=== PATIENT | female | born 1940 | race Caucasian/White ===

== ENCOUNTER 2016-08-29 14:03 | Outpatient (CLI) | payer MEDICARE, OTHER ==
[2016-08-29 14:51] LABS: eGFR (African) > 60; eGFR (Non-African) 39
== END 2016-08-29 14:04 ==
LOC: CARD 14:03
PROVIDERS: ATTEND Family Medicine
DX: I50.9 Heart failure, unspecified (principal)
CPT/HCPCS: 36415; 80048; G0463

== ENCOUNTER 2016-12-22 09:20 | Outpatient (CLI) | payer MEDICARE, OTHER ==
[2016-12-22 09:35] LABS: MEAN CORPUSCULAR HEMOGLOBIN 29.7 pg (28.0-34.0); MEAN CORPUSCULAR VOLUME 90.1 fl (80.0-100.0)
[2016-12-22 10:27] LABS: eGFR (African) > 60; eGFR (Non-African) 42
== END 2016-12-22 09:21 ==
LOC: LAB 09:20
PROVIDERS: ATTEND Internal Medicine Cardiovascular Disease
DX: E11.9 Type 2 diabetes mellitus without complications (principal); I25.10 Atherosclerotic heart disease of native coronary artery without angina pectoris; R06.02 Shortness of breath; E78.5 Hyperlipidemia, unspecified
CPT/HCPCS: 36415; 80053; 80061; 85027

== ENCOUNTER 2017-01-09 14:03 | Outpatient (CLI) | payer MEDICARE, OTHER | END 2017-01-09 14:04 | LOC: LAB 14:03 | PROVIDERS: ATTEND Family Medicine | DX: E11.9 Type 2 diabetes mellitus without complications (principal) | CPT/HCPCS: 36415; 83036 ==

== ENCOUNTER 2017-04-19 10:09 | Outpatient (CLI) | payer MEDICARE, OTHER | END 2017-04-19 10:10 | LOC: LAB 10:09 | PROVIDERS: ATTEND Family Medicine | DX: E11.9 Type 2 diabetes mellitus without complications (principal) | CPT/HCPCS: 36415; 83036 ==

== ENCOUNTER 2017-07-24 08:48 | Outpatient (CLI) | payer MEDICARE, OTHER | END 2017-07-24 08:50 | LOC: LAB 08:48 | PROVIDERS: ATTEND Family Medicine | DX: E11.9 Type 2 diabetes mellitus without complications (principal) | CPT/HCPCS: 36415; 80061; 83036 ==

== ENCOUNTER 2017-11-12 14:37 | Outpatient (CLI) | payer MEDICARE, OTHER | END 2017-11-12 14:40 | LOC: LAB 14:37 | PROVIDERS: ATTEND Family Medicine | DX: E11.9 Type 2 diabetes mellitus without complications (principal) | CPT/HCPCS: 36415; 83036 ==

== ENCOUNTER 2018-01-15 10:54 | Outpatient (CLI) | payer MEDICARE, OTHER | END 2018-01-15 10:55 | LOC: LAB 10:54 | PROVIDERS: ATTEND Family Medicine | DX: M10.9 Gout, unspecified (principal) | CPT/HCPCS: 36415; 84550 ==

== ENCOUNTER → 2018-03-28 | Outpatient (CLI) | payer MEDICARE, OTHER | LOC: LAB 11:58 | PROVIDERS: ATTEND Internal Medicine Cardiovascular Disease | DX: I25.10 Atherosclerotic heart disease of native coronary artery without angina pectoris (principal) | CPT/HCPCS: 36415; 80048 ==

== ENCOUNTER 2018-04-10 09:34 | Outpatient (CLI) | payer MEDICARE, OTHER ==
[2018-04-10 10:23] LABS: eGFR (African) > 60; eGFR (Non-African) 42
== END 2018-04-10 09:35 ==
LOC: LAB 09:34
PROVIDERS: ATTEND Internal Medicine Cardiovascular Disease
DX: I25.10 Atherosclerotic heart disease of native coronary artery without angina pectoris (principal)
CPT/HCPCS: 36415; 80048; 84550

== ENCOUNTER 2018-04-23 10:13 | Outpatient (CLI) | payer MEDICARE, OTHER | END 2018-04-23 10:14 | LOC: LAB 10:13 | PROVIDERS: ATTEND Family Medicine | DX: E11.9 Type 2 diabetes mellitus without complications (principal) | CPT/HCPCS: 36415; 83036 ==

== ENCOUNTER 2018-07-22 10:58 | Outpatient (CLI) | payer MEDICARE, OTHER ==
[2018-07-22 11:52] LABS: eGFR (Non-African) 36
== END 2018-07-22 11:00 ==
LOC: LAB 10:58
PROVIDERS: ATTEND Family Medicine
DX: E11.9 Type 2 diabetes mellitus without complications (principal)
CPT/HCPCS: 36415; 80053; 80061; 83036

== ENCOUNTER 2018-11-19 15:29 | Outpatient (CLI) | payer MEDICARE, OTHER | END 2018-11-19 15:32 | LOC: NEPHRO 15:29 | PROVIDERS: ATTEND Internal Medicine Nephrology | DX: E11.22 Type 2 diabetes mellitus with diabetic chronic kidney disease (principal); N18.3 Chronic kidney disease, stage 3 (moderate); Z79.4 Long term (current) use of insulin; I50.9 Heart failure, unspecified | CPT/HCPCS: G0463 ==

== ENCOUNTER 2018-11-27 07:40 | Outpatient (CLI) | payer MEDICARE, OTHER ==
--- NOTE | 2018-11-27 12:43 | Diagnostic Imaging Report ---
<p>Your browser does not support iframes.</p> FLASH ROSARIO [facility] [id number] [facility]. [address] [place] [address]. [id number] Report Submission Date: Nov 27, 2018 8:20:50 AM CDT Patient Study Name: CANDELARIA MALHOTRA Date: Nov 27, 2018 7:55:15 AM CDT Modality Type: US Gender: F Description: US RETROPERITONEAL COMPLETE : 42 Institution: [facility] Physician: FLASH ROSARIO Examination: Ultrasound kidneys History: CKD CHF DM NEPHROPATHY Comparison exams: None provided. Findings: Right kidney measures 9.1 cm in length. Left kidney measures 9.8 cm in length. No evidence for cortical mass bilaterally. No abnormal dilation of the intrarenal collecting systems. Impression: No cortical mass or obstruction. Electronically signed on Nov 27, 2018 8:20:50 AM CDT by: Urbano PERAE
== END 2018-11-27 10:44 ==
LOC: RAD 07:40
PROVIDERS: ATTEND Internal Medicine Nephrology
DX: E11.21 Type 2 diabetes mellitus with diabetic nephropathy (principal); I50.9 Heart failure, unspecified; N18.9 Chronic kidney disease, unspecified
CPT/HCPCS: 76770

== ENCOUNTER 2018-12-16 10:29 | Outpatient (CLI) | payer MEDICARE, OTHER | END 2018-12-16 10:33 | LOC: LAB 10:29 | PROVIDERS: ATTEND Family Medicine | DX: E11.9 Type 2 diabetes mellitus without complications (principal) | CPT/HCPCS: 36415; 83036 ==

== ENCOUNTER 2019-01-07 14:30 | Outpatient (CLI) | payer MEDICARE, OTHER | END 2019-01-07 14:33 | LOC: NEPHRO 14:30 | PROVIDERS: ATTEND Internal Medicine Nephrology | DX: E11.22 Type 2 diabetes mellitus with diabetic chronic kidney disease (principal); N18.3 Chronic kidney disease, stage 3 (moderate); I50.9 Heart failure, unspecified; Z79.84 Long term (current) use of oral hypoglycemic drugs | CPT/HCPCS: G0463 ==

== ENCOUNTER 2019-04-01 09:16 | Outpatient (CLI) | payer MEDICARE, OTHER ==
[2019-04-01 09:44] LABS: BASOPHILS % 0.4 % (0.0-1.5); NEUTROPHILS # 4.8 # k/uL (1.4-7.7)
[2019-04-01 09:55] LABS: APPEARANCE,URINE CLEAR (CLEAR); COLOR,URINE YELLOW (YELLOW); OCCULT BLOOD,URINE TRACE-INTACT (NEGATIVE); PH URINE 5.5 (5.0 - 8.0); UROBILINOGEN URINE 0.2 Eu (0.2-1.0)
[2019-04-01 09:59] LABS: A1C 6.7 % (<5.7)
[2019-04-01 10:02] LABS: eGFR (Non-African) 32
== END 2019-04-01 09:18 ==
LOC: LAB 09:16
PROVIDERS: ATTEND Internal Medicine Nephrology
DX: E11.22 Type 2 diabetes mellitus with diabetic chronic kidney disease (principal); I50.9 Heart failure, unspecified
CPT/HCPCS: 36415; 80053; 81002; 83036; 85025

== ENCOUNTER 2019-04-08 14:16 | Outpatient (CLI) | payer MEDICARE, OTHER | END 2019-04-08 14:45 | LOC: NEPHRO 14:16 | PROVIDERS: ATTEND Internal Medicine Nephrology | DX: E11.22 Type 2 diabetes mellitus with diabetic chronic kidney disease (principal); N18.3 Chronic kidney disease, stage 3 (moderate); I50.9 Heart failure, unspecified; Z79.84 Long term (current) use of oral hypoglycemic drugs; Z98.61 Coronary angioplasty status | CPT/HCPCS: 99214; G0463 ==

== ENCOUNTER 2019-07-08 09:31 | Outpatient (CLI) | payer MEDICARE, OTHER ==
[2019-07-08 10:31] LABS: BASOPHILS % 0.6 % (0.0-1.5); NEUTROPHILS # 5.8 # k/uL (1.4-7.7)
[2019-07-08 11:02] LABS: APPEARANCE,URINE CLEAR (CLEAR); COLOR,URINE YELLOW (YELLOW); OCCULT BLOOD,URINE NEGATIVE (NEGATIVE); UROBILINOGEN URINE 0.2 Eu (0.2-1.0)
[2019-07-08 11:03] LABS: eGFR (Non-African) 30
[2019-07-08 11:27] LABS: A1C 6.2 % (<5.7)
== END 2019-07-08 09:40 ==
LOC: LAB 09:31
PROVIDERS: ATTEND Internal Medicine Nephrology
DX: E11.22 Type 2 diabetes mellitus with diabetic chronic kidney disease (principal); N18.3 Chronic kidney disease, stage 3 (moderate); N17.9 Acute kidney failure, unspecified; I50.9 Heart failure, unspecified
CPT/HCPCS: 36415; 80053; 81002; 82570; 83036; 84100; 84156; 84550; 85025

== ENCOUNTER 2019-07-15 12:44 | Outpatient (CLI) | payer MEDICARE, OTHER | END 2019-07-15 13:14 | LOC: NEPHRO 12:44 | PROVIDERS: ATTEND Internal Medicine Nephrology | DX: E11.22 Type 2 diabetes mellitus with diabetic chronic kidney disease (principal); I13.0 Hypertensive heart and chronic kidney disease with heart failure and stage 1 through stage 4 chronic kidney disease, or unspecified chronic kidney disease; I50.9 Heart failure, unspecified; N18.2 Chronic kidney disease, stage 2 (mild) | CPT/HCPCS: 99214; G0463 ==

== ENCOUNTER 2019-09-02 12:04 | Outpatient (CLI) | payer MEDICARE, OTHER | END 2019-09-02 12:09 | LOC: LAB 12:04 | PROVIDERS: ATTEND Internal Medicine Nephrology | DX: I12.9 Hypertensive chronic kidney disease with stage 1 through stage 4 chronic kidney disease, or unspecified chronic kidney disease (principal); N18.9 Chronic kidney disease, unspecified; E87.6 Hypokalemia | CPT/HCPCS: 36415; 80053; 85025 ==